=== PATIENT | female | born 1960 | race Caucasian/White ===

== ENCOUNTER 2019-05-21 22:16 | Emergency (ER) | payer BC ==
[~2019-05-21] VITALS: Ht 175.3 cm; Wt 83.2 kg
[2019-05-21] MEDS ORDERED: LORazepam 1 MG tablet PO ONE (23:00)
[2019-05-22 00:13] VITALS: BP 146/87
== END 2019-05-22 00:16 | disposition home or self-care (01) ==
LOC: ER 22:17
DX: I10 Essential (primary) hypertension (principal)
CPT/HCPCS: 93005; 99283